=== PATIENT | male | born 1980 | race Hispanic/Latino ===

== ENCOUNTER 2017-09-03 08:49 | Outpatient (CLI) | payer OTHER ==
[2017-09-03 10:29] LABS: #Basophils 0.1 thou/uL (0.0-0.2); #Eosinphils 0.2 thou/uL (0.0-0.7); #Lymphocytes 1.9 thou/uL (1.20-3.40); #Monocytes 0.4 thou/uL (0.11-0.59); #Neutrophils 2.3 thou/uL (1.40-6.50); %Basophils 1.2 % (0.0-1.0); %Eosinophils 4.6 % (0.0-10.0); %Lymphocytes 38.8 % (21.0-51.0); %Monocytes 8.7 % (0.0-10.0); Hematocrit 49.4 % (42.0-52.0); Mean Platelet Volume 8.8 fL (7.4-10.4); Red Blood Cell (RBC) Count 5.41 mill/uL (4.70-6.10); White Blood Cell (WBC) Count 4.8 thou/uL (4.8-10.8)
== END 2017-09-03 08:50 | disposition home or self-care (01) ==
LOC: LABBT 08:49
PROVIDERS: ATTEND Orthopaedic Surgery Hand Surgery
DX: Z01.812 Encounter for preprocedural laboratory examination (principal); L60.0 Ingrowing nail
CPT/HCPCS: 85025; 85652

== ENCOUNTER 2017-09-10 07:34 | Day surgery (SDC) | payer OTHER ==
[2017-09-03 09:06] VITALS: BMI 26.6
[2017-09-10] MEDS ORDERED: CEFAZOLIN/Water 2 GM/20 ML SYRINGE ONE (09:14)
[2017-09-10] MEDS ORDERED: Midazolam HCl 2 mg/2 ml Vial ONE ×2 (09:59→12:46)
[2017-09-10] MEDS ORDERED: Bupivacaine PF 0.5% 30 ML VIAL ONE (12:39)
[2017-09-10] MEDS ORDERED: Bacitracin Zinc Ointment 30 gm TUBE ONE (12:39)
[2017-09-10] MEDS ORDERED: Fentanyl 100 MCG/2 ML VIAL ONE (12:46)
[2017-09-10] MEDS ORDERED: Ketorolac Tromethamine 30 MG/ML VIAL ONE (13:47)
[2017-09-10] MEDS ORDERED: Ondansetron HCl/PF 4 MG/2 ML Vial ONE (17:25)
[2017-09-10] MEDS ORDERED: PROPOFOL 200 MG/20 ML VIAL ONE (17:25)
[2017-09-10] MEDS ORDERED: Lidocaine 1% PF 5 ML VIAL ONE (17:25)
--- NOTE | 2017-09-11 13:35 | OP ---
DATE OF PROCEDURE: 09/10/2017 PREOPERATIVE DIAGNOSIS: Left ring finger radial side nail ingrown recurrence. POSTOPERATIVE DIAGNOSIS: Left ring finger radial side nail ingrown recurrence. PROCEDURES PERFORMED: Removal of nail and 3 partial nail bed ablation. SPECIMENS REMOVED: None to pathology. ESTIMATED BLOOD LOSS: Estimated blood loss 3 mL. TOURNIQUET TIME: 6 minutes. 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 He had in office nail procedure, but continued to have pain over the nail area and it appeared to be recurrent ingrown. It does not have evidence of a neuroma on this side despite the pr evious amputation history. ANESTHESIA: General LMA technique augmented by 10 mL half percent metacarpophalangeal joint block le obed. FINDINGS: Nail bed aspect radial side and reingrown almost 3-4 mm. DESCRIPTION OF THE PROCEDURE: The patient received general endotracheal anesthesia listed above and then was prepped and draped. Timeout was done. We then injected with the morphine as described abov e metacarpophalangeal joint block level, 10 mL without evidence of complication and no epinephrine. We then waited an appropriate period. With the limb exsanguinated, tourniquet inflated we removed th e nail. We found that the nail indeed was ingrown on the radial side. We then removed approximately 2.5 to 3 mm wide area of the nail bed. We then lifted up some skin, created a small flap and then s utured this to the lateral edge of the nail bed that was still relative to cover the 2 mm of exposed bone all the way to the level of the germinal matrix. From here, we then released the tourniquet, fo und hemostasis, completed the closure. We placed a bulky dressing with antibiotics ointment, bacitra virgen, Adaptic, 4 x 4s and a soft dressing. He left the operating room without evidence of anesthetic or operative complication.
== END 2017-09-10 15:03 | disposition home or self-care (01) ==
LOC: SDC 07:34
PROVIDERS: ATTEND Orthopaedic Surgery Hand Surgery
PROC: 0HBQXZZ Excision of Finger Nail, External Approach (ICD-10-PCS; principal; 2017-09-10)
DX: L60.0 Ingrowing nail (principal); S69.91XA Unspecified injury of right wrist, hand and finger(s), initial encounter; S68.129A Partial traumatic metacarpophalangeal amputation of unspecified finger, initial encounter; M79.2 Neuralgia and neuritis, unspecified; G90.50 Complex regional pain syndrome I, unspecified; Z98.890 Other specified postprocedural states
CPT/HCPCS: 96372; J1885; J2001; J2250; J2405; J2704; J3010; S0020

== ENCOUNTER 2022-02-19 10:11 | Emergency (ER) | payer OTHER, SELFPAY ==
[~2022-02-19 10:11] MED LIST: Iopamidol 370 76% 50 ML VIAL FS ONE
[2022-02-19] MEDS ORDERED: Morphine 4 MG/ML VIAL ONE (12:36)
[2022-02-19] MEDS ORDERED: Ondansetron PF 4 MG/2 ML Vial ONE (12:36)
[2022-02-19 12:38] LABS: ALT (SGPT) 30 U/L (8-55); AST (SGOT) 18 U/L (5-34); Albumin 4.4 g/dL (3.5-5.0); Alkaline Phosphatase 101 U/L (40-110); Anion Gap 14 mmol/L (10-20); BUN (Urea Nitrogen) 11 mg/dL (8.9-20.6); Bilirubin, Total 1.1 mg/dL (0.2-1.2); Calc. Creatinine Clearance 0 mL/min (70-130); Calcium 9.6 mg/dL (7.8-10.44); Carbon Dioxide 25 mmol/L (22-29); Chloride 105 mmol/L (98-107); Globulin 3.4 g/dL (2.4-3.5); Glucose 89 mg/dL (70-105); Lipase 7 U/L (8-78); Potassium 3.7 mmol/L (3.5-5.1); Protein, Total 7.8 g/dL (6.0-8.3); Sodium 140 mmol/L (136-145)
[2022-02-19 12:42] LABS: Bilirubin Negative (Negative); Blood, Urine Negative (Negative); Clarity Extra Turbid (Clear); Glucose, Urine (Dipstick) Normal (Negative); Ketone, Urine Negative (Negative); Leukocyte Negative Leu/uL (Negative); Nitrite Negative (Negative); Protein, Urine (Dipstick) 10 mg/dL (Neg-Trace); Specific Gravity, Urine 1.018 (1.002-1.036); Urobilinogen Normal mg/dL (Less than 2)
[2022-02-19] MEDS ORDERED: Mag-Al 1200 mg/1200 mg/30 ML UDCUP ONE (13:07)
[2022-02-19] MEDS ORDERED: Lidocaine Viscous Sol 2% 15 ml UD Cup ONE (13:07)
[2022-02-19] MEDS ORDERED: Famotidine 20 MG TAB ONE (13:15)
[2022-02-19 14:01] LABS: #Eosinphils 0.1 thou/uL (0.0-0.7); #Lymphocytes 1.7 thou/uL (1.20-3.40); #Monocytes 0.4 thou/uL (0.11-0.59); #Neutrophils 3.5 thou/uL (1.40-6.50); %Basophils 0.3 % (0.0-1.0); %Lymphocytes 29.2 % (21.0-51.0); %Monocytes 7.2 % (0.0-10.0); %Neutrophils 61.3 % (42.0-75.0); Hemoglobin 16.3 g/dL (14.0-18.0); Mean Corpuscular HGB CONC 34.5 g/dL (32.0-36.0); Mean Corpuscular Hemoglobin 32.2 pg (27.0-31.0); Mean Corpuscular Volume 93.3 fL (78.0-98.0); Mean Platelet Volume 8.9 fL (7.4-10.4); Platelet Count 233 thou/uL (130-400); Red Blood Cell (RBC) Count 5.08 mill/uL (4.70-6.10); White Blood Cell (WBC) Count 5.8 thou/uL (4.8-10.8)
[2022-02-19] MEDS ORDERED: Dicyclomine 20 MG TAB ONE (15:07)
== END 2022-02-19 15:44 | disposition home or self-care (01) ==
LOC: ERS 10:11
DX: R10.11 Right upper quadrant pain (principal); R11.0 Nausea; R10.13 Epigastric pain
CPT/HCPCS: 36415; 74177; 76705; 80053; 81003; 83690; 85025; 94760; 96365; 96375; J2270; J2405; Q9967